=== PATIENT | female | born 1950 | race Caucasian/White ===

== ENCOUNTER 2017-10-25 10:00 | Outpatient (CLI) | payer MEDICARE, MEDICAID ==
--- NOTE | 2017-10-25 11:52 | RAD ---
TWO VIEWS OF LEFT HIP: COMPARISON: None. HISTORY: Left hip pain and sciatica for 1 year. FINDINGS: Two views of the left hip show no evidence of acute fracture or dislocation. No soft tissue swelling is seen. No degenerative changes are present. IMPRESSION: Unremarkable exam. POS: [facility]
--- NOTE | 2017-10-25 12:07 | RAD ---
THREE VIEWS OF THE LUMBAR SPINE: INDICATIONS: Left-sided sciatic pain for one year. COMPARISON: Prior exam dated 08/21/2011. FINDINGS: There is moderate disk degenerative disease at L5-S1, which is stable. Mild multilevel disk degenera tive disease at the remaining lumbar intervertebral levels appears within normal limits. Spine align ment is preserved. Vertebral body heights are within normal limits. There are scattered phleboliths within the lower pelvis. IMPRESSION: Stable spondylosis of the lumbar spine when compared to a prior study dated 08/21/2011. POS: REY
== END 2017-10-25 10:01 | disposition home or self-care (01) ==
LOC: MADRAD 10:00
PROVIDERS: ATTEND Family Medicine
DX: M54.42 Lumbago with sciatica, left side (principal); M25.552 Pain in left hip; M47.896 Other spondylosis, lumbar region
CPT/HCPCS: 72100

== ENCOUNTER 2018-12-28 08:43 | Outpatient (CLI) | payer MEDICARE, MEDICAID ==
[2018-12-28 09:27] LABS: ALT (SGPT) 12 U/L (8-55); AST (SGOT) 13 U/L (5-34); Albumin 3.9 g/dL (3.4-4.8); Alkaline Phosphatase 88 U/L (40-150); Anion Gap 13 mmol/L (10-20); BUN (Urea Nitrogen) 12 mg/dL (9.8-20.1); Bilirubin, Total 0.3 mg/dL (0.2-1.2); Calc. Creatinine Clearance 0 mL/min (70-130); Carbon Dioxide 27 mmol/L (23-31); Cardiac Risk 3.1 (Less than 4.5); Chloride 105 mmol/L (98-107); Cholesterol 215 mg/dl (< 200 Desired); Estimated GFR-MDRD 79; Glucose 86 mg/dL (80-115); HDL Cholesterol 69 mg/dL (>60 Neg Risk); LDL Cholesterol, Calculated 132 mg/dL; Potassium 4.3 mmol/L (3.5-5.1); Protein, Total 6.9 g/dL (6.0-8.3); Sodium 141 mmol/L (136-145); Triglycerides 72 mg/dL (Less than 150)
[2018-12-28 09:41] LABS: Thyroid Stimulating Hormone 1.5046 uIU/mL (0.35-4.94)
[2018-12-28 10:09] LABS: #Basophils 0.1 thou/uL (0.0-0.2); #Eosinphils 0.4 thou/uL (0.0-0.7); #Lymphocytes 2.2 thou/uL (1.20-3.40); #Monocytes 0.6 thou/uL (0.11-0.59); #Neutrophils 2.1 thou/uL (1.40-6.50); %Basophils 2.2 % (0.0-1.0); %Eosinophils 6.8 % (0.0-10.0); %Monocytes 11.1 % (0.0-10.0); %Neutrophils 38.9 % (42.0-75.0); Mean Corpuscular HGB CONC 33.2 g/dL (32.0-36.0); Mean Corpuscular Hemoglobin 30.4 pg (27.0-31.0); Mean Corpuscular Volume 91.4 fL (78.0-98.0); Mean Platelet Volume 7.7 fL (7.4-10.4); Platelet Count 250 thou/uL (130-400); RBC Distribution Width 12.1 % (11.5-14.5); Red Blood Cell (RBC) Count 4.62 mill/uL (4.20-5.40); White Blood Cell (WBC) Count 5.5 thou/uL (4.8-10.8)
--- NOTE | 2018-12-28 10:11 | ULT ---
EXAM: PELVIC ULTRASOUND INCLUDING TRANSABDOMINAL, TRANSVAGINAL, AND VASCULAR DUPLEX WITH COLOR AND SPECTRAL DOPPLER IMAGING: History: Pelvic pain for one week. FINDINGS: Uterus measures 5.2 x 3.1 x 4.9 cm and is retroflexed. Endometrium is 0.7 cm. Right ovary is not visu alized. Left ovary is not visualized. There are scattered areas of small echogenic shadowing foci wit hin the uterus probably representing some calcifications. No abscess or abnormal fluid collection. IMPRESSION: Unremarkable small uterus. Non-visualized ovaries. No abscess or abnormal fluid collection. POS: [facility]
[2018-12-28 17:41] LABS: Free T4 (Free Thyroxine) 1.01 ng/dL (0.70-1.48)
[2018-12-28 17:42] LABS: Vitamin D, 25 Hydroxy 7.3 ng/ml (> 30.0)
== END 2018-12-28 08:44 | disposition home or self-care (01) ==
LOC: MADLABBHPM 08:43
PROVIDERS: ATTEND Family Medicine
DX: Z01.419 Encounter for gynecological examination (general) (routine) without abnormal findings (principal); N94.9 Unspecified condition associated with female genital organs and menstrual cycle; Z85.048 Personal history of other malignant neoplasm of rectum, rectosigmoid junction, and anus; Z79.899 Other long term (current) drug therapy; Z78.0 Asymptomatic menopausal state
CPT/HCPCS: 36415; 76856; 80053; 80061; 82306; 84439; 84443; 85025

== ENCOUNTER 2019-07-17 07:42 | Emergency (ER) | payer MEDICARE, MEDICAID ==
[2019-07-17] MEDS ORDERED: Cyclobenzaprine 10 MG TAB ONE (08:05)
[2019-07-17] MEDS ORDERED: Dexamethasone 4 mg/ml Vial ONE (08:05)
[2019-07-17] MEDS ORDERED: Ibuprofen 800 MG TAB ONE (08:05)
[2019-07-17] MEDS ORDERED: HYDROcodone/Acetaminophen 5/325 mg Tablet ONE (08:05)
== END 2019-07-17 08:26 | disposition home or self-care (01) ==
LOC: MADERS 07:42
DX: M54.5 Low back pain (principal); J45.909 Unspecified asthma, uncomplicated; Z79.51 Long term (current) use of inhaled steroids; Z79.899 Other long term (current) drug therapy
CPT/HCPCS: 99283; J1100

== ENCOUNTER 2021-04-07 06:42 | Emergency (ER) | payer MEDICARE, MEDICAID ==
[2021-04-07 07:16] LABS: Bilirubin Negative (Negative); Blood, Urine Trace (Negative); Clarity Clear (Clear); Glucose, Urine (Dipstick) Negative (Negative); Ketone, Urine Negative (Negative); Leukocyte Negative (Negative); Nitrite Negative (Negative); Protein, Urine (Dipstick) Trace mg/dL (Neg-Trace); Urobilinogen 0.2 mg/dL (Less than 2)
[2021-04-07 07:17] LABS: Bacteria/HPF Rare-Few HPF (None Seen); RBC/HPF 0-3 HPF (0-3); Squamous Epithelial 0-3 HPF (0-3); WBC/HPF 0-3 HPF (0-3)
[2021-04-07] MEDS ORDERED: Ketorolac Tromethamine 60 MG/2 ML VIAL ONE (07:35)
[2021-04-07] MEDS ORDERED: Cyclobenzaprine 10 MG TAB ONE (07:35)
== END 2021-04-07 08:07 | disposition home or self-care (01) ==
LOC: MADERS 06:42
DX: M54.5 Low back pain (principal); R10.9 Unspecified abdominal pain; J45.909 Unspecified asthma, uncomplicated
CPT/HCPCS: 81003; 81015; 96372; 99283; J1885